=== PATIENT | female | born 1995 | race Two or more races ===

== ENCOUNTER 2017-02-19 06:10 | Emergency (ER) | payer OTHER ==
[~2017-02-19] VITALS: Ht 152.4 cm; Wt 86.2 kg
--- NOTE | 2017-02-19 06:10 | NUR ---
pt [id number] fr home for report waking up w/ cp, got up from bed, became faint and felt dizzy, diaphoretic, report recent about x1 mos ago, continues to have some VB, hypotensive in field, given NS 1000ml IVB in field. AOx4, afebrile w/ resp even & unlabored, denies any LARSON, dizziness or blurred vision w/ no sob at this time, on continuous pulse ox w/ cardiac monitoring. Dr. Munoz at bedside for further eval.
--- NOTE | 2017-02-19 06:27 | NUR ---
Labs drawn & sent. EKG at bedside.
[2017-02-19 06:40] LABS: BASOPHILS % (AUTO) 0.5 % (0.0-2.0); EOSINOPHILS # (AUTO) 0.2 /CMM (0.0-0.7); EOSINOPHILS % (AUTO) 2.3 % (0.0-6.0); HEMATOCRIT 30 % (33-45); LYMPHOCYTES # (AUTO) 2.7 /CMM (0.8-4.8); LYMPHOCYTES % (AUTO) 33.3 % (20.0-44.0); MEAN CORPUSCULAR HEMOGLOBIN 29 PG (26.0-33.0); MEAN CORPUSCULAR HGB CONC 34 g/dl (31.0-36.0); MEAN CORPUSCULAR VOLUME 85 fL (82-100); MONOCYTES # (AUTO) 0.4 /CMM (0.1-1.30); MONOCYTES % (AUTO) 5.3 % (2.0-12.0); NEUTROPHILS # (AUTO) 4.8 /CMM (1.8-8.9); NEUTROPHILS % (AUTO) 58.6 % (43.0-81.0); PLATELET COUNT (AUTO) 348 /CMM (150-450); RDW COEFFICIENT OF VARIATION 16.9 (11.5-15.0); RED BLOOD CELL COUNT(AUTO) 3.47 MIL/uL (4.0-5.2); WHITE BLOOD COUNT (AUTO) 8.2 K/uL (4.3-11.0)
[2017-02-19 06:55] LABS: CALCIUM, SERUM 8.6 mg/dL (8.5-10.1); CARBON DIOXIDE 24 mmol/L (21-32); CHLORIDE 109 mmol/L (98-107); CREATININE 0.8 mg/dL (0.6-1.3); GLUCOSE 162 mg/dL (74-106); POTASSIUM 3.7 mmol/L (3.5-5.1); SODIUM SERUM 142 mmol/L (136-145); UREA NITROGEN, BLOOD 19 mg/dL (7-18)
[2017-02-19 06:57] LABS: D-DIMER 0.45 mg/L(FEU (0.17-0.50); INR 0.9 (0.87-1.13); PROTHROMBIN TIME 9.4 SECS (9.5-12.7)
[2017-02-19 07:05] LABS: TROPONIN I < 0.017 ng/mL (0.00-0.056)
--- NOTE | 2017-02-19 07:08 | NUR ---
CXR at bedside.
--- NOTE | 2017-02-19 07:16 | NUR ---
Report given to SUNNY Valdes for [facility].
--- NOTE | 2017-02-19 07:55 | NUR ---
Patient discharged to home in stable condition. Written and verbal after care instructions given. Patient verbalizes understanding of instruction.
[2017-02-19 07:57] VITALS: BP 108/62
--- NOTE | 2017-02-19 08:03 | NUR ---
IV removed. Catheter intact and site benign. Pressure and 4x4 applied to site. No bleeding noted.
== END 2017-02-19 08:03 | disposition home or self-care (01) ==
LOC: ER 06:11
DX: R07.89 Other chest pain (principal)
CPT/HCPCS: 36415; 71010; 80048; 84484; 84703; 85025; 85378; 85730; 93005; 99285; A4606; Z7610